=== PATIENT | male | born 1990 | race Caucasian/White ===

== ENCOUNTER 2019-03-04 17:43 | Emergency (ER) | payer SELFPAY ==
[~2019-03-04] VITALS: Ht 198.1 cm; Wt 188.2 kg
[~2019-03-04 17:43] MED LIST: MTF1000T PO
[2019-03-04 18:13] VITALS: BP 139/99; PULSE 111; RESP 20; Ht 198.1 cm; Wt 188.2 kg
== END 2019-03-04 19:37 | disposition home or self-care (01) ==
LOC: E/R 17:43
DX: Z76.0 Encounter for issue of repeat prescription (principal); E11.9 Type 2 diabetes mellitus without complications; Z79.84 Long term (current) use of oral hypoglycemic drugs
CPT/HCPCS: 99281